=== PATIENT | male | born 1990 | race Caucasian/White ===

== ENCOUNTER → 2022-05-13 14:51 | Outpatient (BNVA) | payer MEDICAID, SELFPAY | PROVIDERS: Family Provider Family Medicine; Visit Provider Nurse Practitioner Family | DX: Z20.822 Contact with and (suspected) exposure to COVID-19 (principal); Z71.1 Person with feared health complaint in whom no diagnosis is made | CPT/HCPCS: 87426 ==

== ENCOUNTER 2023-01-19 17:01 | Emergency (ER) | payer MEDICAID, SELFPAY ==
[2023-01-19 17:04] VITALS: BP 135/91; PULSE 119; RESP 16; O2SAT 95
--- NOTE | 2023-01-19 17:11 | CTR_ITS ---
PROCEDURE INFORMATION: Exam: CT Cervical Spine Without Contrast Exam date and time: 01/19/2023 5:55 PM Age: 32 years old Clinical indication: Injury or trauma; Other: Blunt trauma; Patient HX: Peice of sheet rock from ceiling fell on pt's head. C/O neck pain. C collar in place. TECHNIQUE: Imaging protocol: Computed tomography of the cervical spine without contrast. Radiation optimization: All CT scans at this facility use at least one of these dose optimization techniques: automated exposure control; mA and/or kV adjustment per patient size (includes targeted exams where dose is matched to clinical indication); or iterative reconstruction. REPORTING DATA: Count of CT and Cardiac NM exams in prior 12 months: This patient has received 0 known CTs and 0 known cardiac nuclear medicine studies in the 12 months prior to the current study. COMPARISON: No relevant prior studies available. RADIATION DOSE METRICS: Total DLP (mGy-cm): 162.27 FINDINGS: Bones/joints: Normal alignment. No acute fracture or subluxation. Disc heights are maintained. Mild spondylitic changes C5-C6 and C6-C7. No severe spinal canal stenosis. No significant neural foraminal narrowing. Lungs: Lung apices are not visualized.. Soft tissues: Unremarkable. CT/CT cervical spin wo con* [id number] IMPRESSION: Negative CT examination of the cervical spine. No fracture detected.
--- NOTE | 2023-01-19 17:11 | ED_ITS ---
HPI - Extremity Problem General: Chief complaint: Extremity Injury, Upper Stated complaint: injury to right wrist Time Seen by Provider: 01/19/23 17:07 History of Present Illness: 32-year-old male patient comes in today with injuries sustained from the ceiling collapsing onto his head at his apartment. Patient reports he was sitting in his wheelchair to watch television when a piece of the ceiling came down and struck him on top of the head. Patient reports neck pain and right wrist injury. Patient has a history of cerebral palsy which binds him to a wheelchair. Associated symptoms: Deny chest pain or fever(s) Review of Systems Const: Denies: fever(s) Card: Denies: chest pain Musc: Reports: neck pain and joint pain (Right wrist pain) Physical Exam Const: COMMON NORMALS: alert HENMT: COMMON NORMALS: normocephalic HEAD & SCALP: normocephalic Neck/C-Spine: OTHER: Cervical spine collar in place Resp: COMMON NORMALS: normal respiratory effort and clear to auscultation bilaterally AUSCULTATION: clear to auscultation bilaterally Cardio: COMMON NORMALS: regular rate and regular rhythm RATE: regular rate RHYTHM: regular rhythm GI: PALPATION: No Tenderness to palpation present (GI) Back/Pelvis: COMMON NORMALS: thoracic and lumbar spine normal to inspection Extremity: RIGHT UPPER EXTREMITY: Yes wrist (Joint line tenderness, minimal swelling, chronic decreased range of motion ) Neuro: SENSORIUM/ORIENTATION: Yes alert Skin: COMMON NORMALS: no rashes or lesions noted and turgor normal GENERAL SKIN EXAM: no rashes or lesions noted and turgor normal Course Vital Signs: Vital signs: Vital Signs Pulse Rate 108 H 01/19/23 18:48 Respiratory Rate 18 01/19/23 18:48 Blood Pressure 135/91 01/19/23 17:04 Pulse Oximetry 91 01/19/23 18:48 MDM - Extremity (Nontraumatic) Medical Decision Making Patient had a piece of ceiling come down on his head while sudden in his apartment watching TV. On exam patient has some tenderness to the cervical spinal area muscles but no point tenderness along the cervical spine. Patient is guarded with movement of his right wrist due to pain and history of cerebral palsy. Patient does have contractures to his lower extremities and bilateral hands. Cap refill is intact. No obvious deformity or swelling is noted to the right wrist. Differential diagnosis includes contusions, sprains, fractures. X-ray of the wrist and CT of the cervical spine indicated no acute injury or fracture. Elastic bandage was used on the right wrist due to in availability of no wrist Velcro splints. Patient reported understanding agreed to plan. Lab Data Radiology Impressions Cervical Spine CT 01/19/23 17:11 IMPRESSION: Negative CT examination of the cervical spine. No fracture detected. Wrist X-Ray 01/19/23 17:11 IMPRESSION: 1. Negative for acute fracture. 2. 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 3. 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 Discharge Plan Discharge Patient Disposition: Home Clinical Impression: Neck muscle strain Qualifiers: Encounter type: initial encounter Qualified Code(s): S16.1XXA - Strain of muscle, fascia and tendon at neck level, initial encounter Sprain of right wrist Qualifiers: Encounter type: initial encounter Qualified Code(s): S63.501A - Unspecified sprain of right wrist, initial encounter Condition: Stable Prescriptions: No Action No Known Home Medications Discharge Orders: Discharge ED (Routine); Ordered 01/19/23 Ordered By: Dustin Orozco Discharge Diet: Usual diet Discharge Activity: Increase activity as tolerated Patient Instructions: Musculoskeletal Pain (ED) Activity Restrictions/Additional Instructions: Use acetaminophen and/or ibuprofen as needed for pain. Ice packs for further pain relief. Activity as tolerated. Follow-up with primary care for further instructions. Coding Level of Care Code ED [employer]person [employer] for Martha Baker
--- NOTE | 2023-01-19 17:11 | XRR_ITS ---
PROCEDURE INFORMATION: Exam: XR Right Wrist Exam date and time: 01/19/2023 5:23 PM Age: 32 years old Clinical indication: Injury or trauma; Other: Ceiling fell on him; Crushing; Wrist; Right TECHNIQUE: Imaging protocol: Radiologic exam of the right wrist. Views: 3 or more views. COMPARISON: No relevant prior studies available. FINDINGS: Bones/joints: There is deformity and dislocation of the radial head at the elbow that appears longstanding and should be confirmed with history. There is malalignment of the distal ulna in relation to the proximal carpal role with dorsal lateral displacement that is also likely longstanding and should be confirmed with history. Remaining osseous structures are unremarkable. No fracture detected. Soft tissues: Unremarkable. XR/XR wrist RT min 3V* [id number] IMPRESSION: 1. Negative for acute fracture. 2. 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 3. 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
[2023-01-19] MEDS: ketorolac 30 mg/mL INJ 15 MG IVP (17:32)
[2023-01-19 18:48] VITALS: PULSE 108; RESP 18; O2SAT 91
== END 2023-01-19 18:49 | disposition home or self-care (01) ==
PROVIDERS: Emergency Provider Nurse Practitioner Family
DX: S16.1XXA Strain of muscle, fascia and tendon at neck level, initial encounter (principal); S63.501A Unspecified sprain of right wrist, initial encounter; W20.1XXA Struck by object due to collapse of building, initial encounter
CPT/HCPCS: 72125; 73110; 99284; J1885

== ENCOUNTER 2023-08-12 00:02 | Emergency (ER) | payer MEDICAID, SELFPAY ==
[2023-08-12 00:03] VITALS: BP 135/86; PULSE 94; RESP 18; TEMP 36.6; O2SAT 95; BMI 28.8
--- NOTE | 2023-08-12 00:07 | CTR_ITS ---
PROCEDURE INFORMATION: Exam: CT Head Without Contrast Exam date and time: 08/12/2023 12:31 AM Age: 32 years old Clinical indication: Injury or trauma; Fall; Blunt trauma (contusions or hematomas); Patient HX: Patient said he fell yesterday after tripping with loc and was checked out at [facility] and the CT was negative. He says he is now feeling a bit nauseous so he came to be checked out here. TECHNIQUE: Imaging protocol: Computed tomography of the head without contrast. Radiation optimization: All CT scans at this facility use at least one of these dose optimization techniques: automated exposure control; mA and/or kV adjustment per patient size (includes targeted exams where dose is matched to clinical indication); or iterative reconstruction. COMPARISON: CT cervical spin wo con* [id number] 01/19/2023 5:55 PM RADIATION DOSE METRICS: Total DLP (mGy-cm): 1214 FINDINGS: Brain: Normal. No hemorrhage. Unremarkable white matter. No mass effect. Cerebral ventricles: No ventriculomegaly. Paranasal sinuses: Visualized sinuses are unremarkable. No fluid levels. Mastoid air cells: Visualized mastoid air cells are well aerated. Bones/joints: Unremarkable. No acute fracture. Soft tissues: Unremarkable. CT/CT head wo con* [id number] IMPRESSION: No acute intracranial abnormality.
--- NOTE | 2023-08-12 00:12 | W.ED.HA ---
HPI - Headache General: Chief Complaint: Headache Stated Complaint: FALL Time Seen by Provider: 08/12/23 00:05 Source: patient and EMS Mode of arrival: EMS Limitations: no limitations History of Present Illness: 32-year-old male who had a fall yesterday states he tripped and fell and hit his head. He states that he has had severe headaches since then he is seen at [facility] last night and told he had a concussion he states that his headaches have worsened and he denies any loss of consciousness had some nausea denies any vomiting denies fever Associated symptoms: Deny chest pain or fever(s) Review of Systems Const: Denies: fever(s) or chills Eyes: Denies: blurry vision ENMT: Denies: throat pain or dental pain Card: Denies: chest pain Resp: Denies: dyspnea GI: Denies: abdominal pain Musc: Denies: neck pain or back pain Neuro: Reports: headache(s) FORMERLY [facility], 1928–1983 ED PFSH: Medical History Psychiatric care Physical Exam Const: COMMON NORMALS: no acute distress, patient oriented x3 and healthy appearing HENMT: COMMON NORMALS: normocephalic and atraumatic HEAD & SCALP: normocephalic and atraumatic Eye: COMMON NORMALS: Equal, round and reactive pupils present and EOMs intact bilaterally PUPIL: Yes Equal, round and reactive pupils present Neck/C-Spine: COMMON NORMALS: full ROM and supple CERVICAL SPINE: No Cervical spine tenderness Chest: COMMONS NORMALS: normal inspection of the chest Resp: COMMON NORMALS: normal respiratory effort Cardio: COMMON NORMALS: regular rate, regular rhythm and No murmurs present (Cardio) RATE: regular rate RHYTHM: regular rhythm Extremity: COMMON NORMALS: normal to inspection and full ROM Neuro: COMMON NORMALS: patient oriented x3, moves all extremities and no focal motor deficits Psych: COMMON NORMALS: mental status grossly normal, Normal thought process present and cooperative THOUGHT PROCESS: Normal thought process present Skin: COMMON NORMALS: no rashes or lesions noted and no wounds GENERAL SKIN EXAM: no rashes or lesions noted Course Vital Signs: Vital signs: Vital Signs Temperature 97.9 F 08/12/23 00:03 Pulse Rate 94 08/12/23 00:03 Respiratory Rate 18 08/12/23 00:03 Blood Pressure 135/86 02/20/24 00:03 Pulse Oximetry 95 08/12/23 00:03 Oxygen Delivery Me thod Room Air 08/12/23 00:03 MDM - Headache Medical Decision Making Patient presents here with headaches likely from a concussion CT shows no acute findings he has no signs of fracture or hemorrhage she is stable for discharge his follow-up with PCP return if worsening. Medical Records I reviewed the patient's medical records. Lab Data Radiology Impressions Head CT 08/12/23 00:07 IMPRESSION: No acute intracranial abnormality. All radiology interpretation(s) finalized by discharge Discharge Plan Discharge Patient Disposition: Home Clinical Impression: Postconcussion syndrome Condition: Stable Prescriptions: No Action No Known Home Medications Discharge Orders: Discharge ED (Routine); Ordered 08/12/23 Ordered By: Maritza Longo Discharge Diet: Advance as tolerated Discharge Activity: Resume usual activity Patient Instructions: Concussion (ED) Coding Level of Care Code ED Merchandise Supervisor for Martha Baker
[2023-08-12] MEDS: metoclopramide 5 mg/mL SDV 2 mL 10 MG IVP (00:25)
[2023-08-12] MEDS: diphenhydrAMINE 50 mg/mL SDV 1mL IVP (00:26)
== END 2023-08-12 01:12 | disposition home or self-care (01) ==
PROVIDERS: Emergency Provider Emergency Medicine
DX: F07.81 Postconcussional syndrome (principal); W01.0XXA Fall on same level from slipping, tripping and stumbling without subsequent striking against object, initial encounter
CPT/HCPCS: 70450; 96374; 96375; 99284; J1200; J2765